=== PATIENT | male | born 1950 | race Caucasian/White ===

== ENCOUNTER 2018-06-03 13:57 | Emergency (ER) | payer MEDICARE ==
[~2018-06-03] VITALS: Ht 170.2 cm; Wt 77.0 kg
[2018-06-03 21:55] VITALS: BP 145/88
== END 2018-06-03 21:58 | disposition home or self-care (01) ==
LOC: ER 13:57
DX: J06.9 Acute upper respiratory infection, unspecified (principal); Z88.8 Allergy status to other drugs, medicaments and biological substances
CPT/HCPCS: 71045; 87804; 99284

== ENCOUNTER 2019-04-03 15:42 | Emergency (ER) | payer BC, OTHER ==
[~2019-04-03] VITALS: Ht 170.2 cm; Wt 68.0 kg
[2019-04-03] MEDS ORDERED: KETOROLAC 30MG/ML VIAL IV STA (18:12)
[2019-04-03] MEDS ORDERED: ONDANSETRON HCL 4MG/2ML INJ IV STA (18:12)
[2019-04-03 18:25] LABS: HEMATOCRIT. 51.2 % (42.0-52.0); HEMOGLOBIN. 17.7 g/dL (14.0-18.0); MEAN CORPUSCULAR HEMOGLOBIN 30.7 pg (28.0-32.0); MEAN PLATELET VOLUME 7.4 fl (7.4-10.4); PLATELET 225 x1000/uL (130-400); RED BLOOD CELL COUNT 5.75 mill/uL (4.7-6.1); RED CELL DISTRIBUTION WIDTH 13.4 % (11.6-14.6)
[2019-04-03 18:26] LABS: CHLORIDE 99 mEq/L (98-107); INR 1.1; PROTHROMBIN TIME 10.9 sec (9.6-11.0)
[2019-04-03 18:38] LABS: PLATELET ESTIMATE NORMAL
[2019-04-03 22:09] VITALS: BP 129/83
== END 2019-04-03 22:15 | disposition home or self-care (01) ==
LOC: ER 15:42
DX: R10.13 Epigastric pain (principal); Z88.8 Allergy status to other drugs, medicaments and biological substances
CPT/HCPCS: 36415; 74018; 80053; 83690; 84484; 85025; 85610; 93005; 96374; 96375; 99284; J1885; J2405

== ENCOUNTER 2019-08-15 12:33 | Emergency (ER) | payer BC, OTHER ==
[~2019-08-15] VITALS: Ht 170.2 cm; Wt 77.5 kg
[2019-08-15] MEDS ORDERED: TEMA30CA PO (13:48)
[2019-08-15] MEDS ORDERED: LOSA100T32 PO (13:48)
[2019-08-15] MEDS ORDERED: AMLO10TA80 PO (13:48)
[2019-08-15 16:57] LABS: BASOPHILS % 0.9 % (0.0-2.0); EOSINOPHILS % 0.2 % (0.0-5.0); HEMATOCRIT. 49.3 % (42.0-52.0); HEMOGLOBIN. 17.3 g/dL (14.0-18.0); LYMPHOCYTES % 13.6 % (20.0-50.0); MEAN CORPUSCULAR HEMOGLOBIN 31.2 pg (28.0-32.0); MEAN CORPUSCULAR VOLUME 88.7 fL (80.0-94.0); MEAN PLATELET VOLUME 7.1 fl (7.4-10.4); MONOCYTES % 7.7 % (2.0-8.0); NEUTROPHILS % 77.6 % (40.0-76.0); PLATELET 247 x1000/uL (130-400); RED BLOOD CELL COUNT 5.56 mill/uL (4.7-6.1); RED CELL DISTRIBUTION WIDTH 13.7 % (11.6-14.6)
[2019-08-15 17:04] LABS: CHLORIDE 103 mEq/L (98-107)
[2019-08-15 17:08] LABS: ETHANOL BLOOD < 10 mg/dL
[2019-08-15 17:42] LABS: CLARITY URINE CLEAR (CLEAR); COLOR URINE YELLOW (YELLOW); KETONES URINE NEGATIVE (NEGATIVE); LEUKOCYTE ESTERASE URINE NEGATIVE (NEGATIVE); NITRITE URINE NEGATIVE (NEGATIVE); OCCULT BLOOD URINE NEGATIVE (NEGATIVE); PH URINE 7.5 (4.5-8.0); PROTEIN URINE NEGATIVE (NEGATIVE); SPECIFIC GRAVITY URINE 1.002 (1.005-1.030); UROBILINOGEN URINE 0.2 E.U./dL (0.2-1.0)
[2019-08-15 17:54] LABS: *BARBITURATES SCREEN URINE NEGATIVE (NEGATIVE); *BENZODIAZEPINES SCREEN URINE NEGATIVE (NEGATIVE); *COCAINE SCREEN URINE NEGATIVE (NEGATIVE)
[2019-08-15 17:55] LABS: *AMPHETAMINES SCREEN URINE NEGATIVE (NEGATIVE); CANNABINOID URINE SCREEN NEGATIVE (NEGATIVE); METHADONE URINE SCREEN NEGATIVE (NEGATIVE); OPIATES URINE SCREEN NEGATIVE (NEGATIVE); PHENCYCLIDINE URINE SCREEN NEGATIVE (NEGATIVE)
[2019-08-15 18:06] VITALS: BP 135/80
== END 2019-08-15 18:49 | disposition home or self-care (01) ==
LOC: ER 12:33
DX: F13.239 Sedative, hypnotic or anxiolytic dependence with withdrawal, unspecified (principal); I10 Essential (primary) hypertension; Z88.2 Allergy status to sulfonamides; Z88.8 Allergy status to other drugs, medicaments and biological substances; Z79.899 Other long term (current) drug therapy
CPT/HCPCS: 36415; 80053; 80305; 80307; 80320; 80329; 81003; 85025; 99283; G0480